=== PATIENT | female | born 1990 | race Hispanic/Latino ===

== ENCOUNTER 2022-11-23 21:49 | Emergency (ER) | payer OTHER, SELFPAY ==
--- NOTE | 2022-11-23 22:23 | EDPHYS ---
Physician Documentation [facility] Name: Aneta Galindo Age: 32 yrs Sex: Female : 1990 Arrival Date: 11/23/2022 Time: 21:53 Bed 23 Private MD: ED Physician Michael Jacobs HPI: 11/23 23:10 This 32 yrs old Female presents to ER via Ambulatory with complaints of Ear rt Pain, Facial Pain, Dizziness. 23:10 The patient presents with pain. The complaints affect the right ear. Associated signs rt and symptoms: Pertinent positives: sore throat. Severity of symptoms: At their worst the symptoms were mild. Patient presents to the ED with right ear, right sided jaw pain starting today. Just reports of dental pain. Denies cough, difficulty swallowing, other acute complaints. Symptoms are mild, aching in nature, not otherwise radiating. No other aggravating alleviating factors. In severity. 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 - Social history:: Smoking status: Patient denies any tobacco usage or history of. - Family history:: not pertinent. ROS: 23:10 Constitutional: Negative for fever, chills, and weight loss, Eyes: Negative for injury, rt pain, redness, and discharge, Cardiovascular: Negative for chest pain, palpitations, and edema, Respiratory: Negative for shortness of breath, cough, wheezing, and pleuritic chest pain, Abdomen/GI: Negative for abdominal pain, nausea, vomiting, diarrhea, and constipation, Skin: Negative for injury, rash, and discoloration, Neuro: Negative for headache, weakness, numbness, tingling, and seizure, Psych: Negative for depression, anxiety, suicide ideation, homicidal ideation, and hallucinations. 23:10 ENT: Positive for dental pain, otalgia. Exam: 23:10 Constitutional: This is a well developed, well nourished patient who is awake, alert, rt and in no acute distress. Head/Face: Normocephalic, atraumatic. Eyes: Pupils equal round and reactive to light, extra-ocular motions intact. Lids and lashes normal. Conjunctiva and sclera are non-icteric and not injected. Cornea within normal limits. Periorbital areas with no swelling, redness, or edema. Neck: Trachea midline, no thyromegaly or masses palpated, and no cervical lymphadenopathy. Supple, full range of motion without nuchal rigidity, or vertebral point tenderness. No Meningismus. Chest/axilla: Normal chest wall appearance and motion. Nontender with no deformity. No lesions are appreciated. Cardiovascular: Regular rate and rhythm with a normal S1 and S2. No gallops, murmurs, or rubs. Normal PMI, no JVD. No pulse deficits. Respiratory: Lungs have equal breath sounds bilaterally, clear to auscultation and percussion. No rales, rhonchi or wheezes noted. No increased work of breathing, no retractions or nasal flaring. Abdomen/GI: Soft, non-tender, with normal bowel sounds. No distension or tympany. No guarding or rebound. No evidence of tenderness throughout. 23:10 ENT: Right-sided cerumen impaction, multiple dental caries noted, no other facial swelling noted.. Vital Signs: 22:18 BP 151 / 98; Pulse 85; Resp 15; Temp 98.4(O); Pulse Ox 100% ; Weight 68.04 kg; Height 5 vc1 ft. 2 in. (157.48 cm); Pain 10/10; 23:01 BP 114 / 93; Pulse 99; Resp 20; Pulse Ox 99% ; jj7 23:10 BP 109 / 88; Pulse 79; Resp 20; Pulse Ox 100% ; jj7 22:18 Body Mass Index 27.44 (68.04 kg, 157.48 cm) vc1 MDM: 22:15 Patient medically screened. rt 23:10 Differential diagnosis: otitis media, otitis externa, acute otalgia, cerumen impaction. rt Data reviewed: vital signs, nurses notes. ED course: Presents to the ED with dental pain, right ear pain. She has multiple dental caries noted as well as a cerumen impaction, unable to visualize the right TM. Will cover with antibiotics. Discussed qekx-hsi-haeoimo cerumen relievers. Patient instructed to follow-up with her dentist. 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 Administered Medications: 23:01 Drug: Ketorolac 30 mg Route: IM; Site: right gluteus; jj7 Disposition Summary: 11/23/22 22:23 Discharge Ordered Location: Home rt Problem: new rt Symptoms: are unchanged rt Condition: Stable rt Diagnosis - Impacted cerumen, right ear rt - Dental caries, unspecified rt Followup: rt - With: Private Physician - When: 2 - 3 days - Reason: Discharge Instructions: - Discharge Summary Sheet rt - Earwax Buildup, Adult rt - Dental Pain, [id number] rt Forms: - Medication Reconciliation Form rt - Thank You Letter rt - Antibiotic Education rt - Prescription Opioid Use rt Prescriptions: - Amoxicillin 875 mg Oral Tablet - take 1 tablet by ORAL route every 12 hours for 10 days; 20 tablet; Refills: 0, rt Product Selection Permitted Signatures: Kitty sOuna RN RN vc1 Michael Morales RN RN jj7 Michael Jacobs MD MD rt
--- NOTE | 2022-11-23 22:23 | ER ---
Nurse's Notes [facility] Name: Aneta Galindo Age: 32 yrs Sex: Female : 1990 Arrival Date: 11/23/2022 Time: 21:53 Bed 23 Private MD: Diagnosis: Impacted cerumen, right ear;Dental caries, unspecified Presentation: 11/23 22:18 Chief complaint: Patient states: "Thursday the side of my face started hurting and now vc1 its just unbearable. I don't know if it is my ear or what.". Coronavirus screen: Vaccine status: Patient reports being unvaccinated. At this time, the client does not indicate any symptoms associated with coronavirus-19. Ebola Screen: No symptoms or risks identified at this time. Initial Sepsis Screen: Does the patient meet any 2 criteria? No. Patient's initial sepsis screen is negative. Does the patient have a suspected source of infection? No. Patient's initial sepsis screen is negative. Risk Assessment: Do you want to hurt yourself or someone else? Patient reports no desire to harm self or others. Onset of symptoms was November 21, 2022. Care prior to arrival: Medication(s) given: Tylenol, 500 mg \\T\\ 1999. 22:18 Method Of Arrival: Ambulatory vc1 22:18 Acuity: RADHA 4 vc1 Triage Assessment: 22:21 General: Appears in no apparent distress. uncomfortable, Behavior is calm, cooperative, vc1 appropriate for age. Pain: Complains of pain in right ear, right cheek and right mandible Pain currently is 10 out of 10 on a pain scale. EENT: Reports pain. Neuro: Level of Consciousness is awake, alert, obeys commands, Oriented to person, place, time, situation, Appropriate for age. Cardiovascular: No deficits noted. Respiratory: Airway is patent Respiratory effort is even, unlabored, Respiratory pattern is regular, symmetrical. GI: No deficits noted. No signs and/or symptoms were reported involving the gastrointestinal system. : No deficits noted. No signs and/or symptoms were reported regarding the genitourinary system. Derm: No deficits noted. No signs and/or symptoms reported regarding the dermatologic system. Musculoskeletal: No deficits noted. 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 - Social history:: Smoking status: Patient denies any tobacco usage or history of. - Family history:: not pertinent. Screenin:22 [facility] ED Fall Risk Assessment (Adult) History of falling in the last 3 months, vc1 including since admission No falls in past 3 months (0 pts) Confusion or Disorientation No (0 pts) Intoxicated or Sedated No (0 pts) Impaired Gait No (0 pts) Mobility Assist Device Used No (0 pt) Altered Elimination No (0 pt) Score/Fall Risk Level 0 - 2 = Low Risk Oriented to surroundings, Maintained a safe environment, Educated pt \\T\\ family on fall prevention, incl call for assistance when getting out of bed. Abuse screen: Denies threats or abuse. Nutritional screening: No deficits noted. Tuberculosis screening: No symptoms or risk factors identified. Assessment: 22:20 Reassessment: SEE TRIAGE ASSESSMENT. jj7 Vital Signs: 22:18 BP 151 / 98; Pulse 85; Resp 15; Temp 98.4(O); Pulse Ox 100% ; Weight 68.04 kg; Height 5 vc1 ft. 2 in. (157.48 cm); Pain 10/10; 23:01 BP 114 / 93; Pulse 99; Resp 20; Pulse Ox 99% ; jj7 23:10 BP 109 / 88; Pulse 79; Resp 20; Pulse Ox 100% ; jj7 22:18 Body Mass Index 27.44 (68.04 kg, 157.48 cm) vc1 ED Course: 21:53 Patient arrived in ED. ja2 22:03 Michael Jacobs MD is Attending Physician. rt 22:20 Triage completed. vc1 22:20 No provider procedures requiring assistance completed. Patient did not have IV access jj7 during this emergency room visit. 22:22 Arm band placed on right wrist. vc1 22:23 Patient has correct armband on for positive identification. Bed in low position. Call vc1 light in reach. Pulse ox on. NIBP on. 22:54 Michael Morales RN is Primary Nurse. jj7 Administered Medications: 23:01 Drug: Ketorolac 30 mg Route: IM; Site: right gluteus; jj7 Medication: 22:23 VIS not applicable for this client. vc1 Outcome: 22:23 Discharge ordered by . rt 23:10 Discharged to home ambulatory, with significant other. jj7 23:10 Condition: improved 23:10 Discharge instructions given to patient, Instructed on discharge instructions, medication usage, Demonstrated understanding of instructions, medications, Prescriptions given X 1. 23:11 Patient left the ED. jj7 Signatures: Haylee Hernandez Vanessa, RN RN vc1 Michael Morales RN RN jj7 Michael Jacobs MD MD rt
[2022-11-23] MEDS ORDERED: KETOROLAC 30 MG/ML INJ ONE (23:01)
[2022-11-23 23:17] VITALS: TEMP 98.4
[2022-11-23 23:20] VITALS: BP 109/88; O2SAT 100
== END 2022-11-23 23:11 | disposition home or self-care (01) ==
LOC: ER 21:49
DX: H61.21 Impacted cerumen, right ear (principal); K02.9 Dental caries, unspecified
CPT/HCPCS: 96372; 99283